=== PATIENT | female | born 1995 ===

== ENCOUNTER 2018-05-23 10:54 | Outpatient (REF) | payer MEDICAID, SELFPAY ==
--- NOTE | 2018-05-23 09:30 | PAPFT_PTH ---
PATIENT: DIGNA MARTIN LOC: [facility]#:[id number] AGE/SX: 22/F ROOM: RE05/23/[address]: Kaylin Whaley : 1995 BED: DIS: 05/23/2018 SPEC #: [id number] RECD: 05/24/18 13:06 STATUS: LINDA REQ #: [id number] GAVIN: 05/23/18 09:[address]: Kaylin Whaley DEPT: [facility] Cytology RECD BY: Caterina Ryder ENTERED: 05/24/18 13:06 SP TYPE: PAPFT OTHR DR: Unknown,Unknown Tissues: 1 - CX/ENDOCX FOR PAP SMEARS Procedures: PAP THIN PREP/[facility] Screening Comments: (CHLAMYDIA/GC)
[2018-05-27 15:15] LABS: Chlamydia Result Negative; GC Result Negative; Specimen Description SEE COMMENTS
== END 2018-05-23 11:14 ==
LOC: NCHCN 10:54
PROVIDERS: Visit Provider Nurse Practitioner Family
DX: Z00.00 Encounter for general adult medical examination without abnormal findings (principal); Z12.4 Encounter for screening for malignant neoplasm of cervix
CPT/HCPCS: 87491; 87591; 88142

== ENCOUNTER 2019-07-31 09:13 | Outpatient (REF) | payer MEDICAID, SELFPAY ==
[2019-07-31 21:06] LABS: HCT 38.2 % (36.0-46.0); Mean Corpuscular Hemoglobin 29.8 pg (27.0-33.0); Mean Corpuscular Volume 87.6 fL (80-95); Mean Platelet Volume 9.9 fL (8.0-11.0); Platelet Count 352 x1000/uL (130-400); RBC 4.36 m/cumm (4.00-5.20); RBC Distribution Width 12.9 % (11.7-14.6); White Blood Cell Count 7.69 k/cumm (4.4-10.8)
[2019-07-31 21:20] LABS: ALT 15 U/L (14-59); AST 10 U/L (15-37); Albumin 4.1 g/dL (3.4-5.0); Alkaline Phosphatase 69 U/L (46-116); Anion Gap 10.4 mmol/L (3-11); BUN 6 mg/dL (7-18); CO2 25.6 mmol/L (21.0-32.0); CREATININE 0.67 mg/dL (0.55-1.02); Calcium 9.3 mg/dL (8.5-10.1); Chloride 105 mmol/L (98-107); Glucose 85 mg/dL (74-106); Potassium 3.8 mmol/L (3.5-5.1); Sodium 141 mmol/L (136-145); TSH (W/Ref FT4) 0.96 uIU/mL (0.36-3.74); Total Protein 7.2 g/dL (6.4-8.2)
[2019-08-04 10:55] LABS: HIV-1/2 Ag & Ab Screen Negative (Negative)
[2019-08-04 15:01] LABS: Chlamydia Result Negative (Negative); GC Result Negative (Negative)
== END 2019-07-31 09:33 ==
LOC: NCHCN 09:13
PROVIDERS: PCP Nurse Practitioner Community Health; Visit Provider Nurse Practitioner Community Health
DX: Z11.3 Encounter for screening for infections with a predominantly sexual mode of transmission (principal); Z11.4 Encounter for screening for human immunodeficiency virus [HIV]; Z13.29 Encounter for screening for other suspected endocrine disorder; Z13.228 Encounter for screening for other metabolic disorders
CPT/HCPCS: 80053; 85027; 87389; 87491; 87591; 84443